=== PATIENT | female | born 1940 | race Caucasian/White ===

== ENCOUNTER 2016-11-02 05:38 | Inpatient (IN) | payer OTHER ==
[2016-10-25 14:04] LABS: URINE BILIRUBIN NEGATIVE (Negative); URINE BLOOD NEGATIVE (Negative); URINE COLOR YELLOW; URINE GLUCOSE-RANDOM* NEGATIVE (Negative); URINE KETONES NEGATIVE (Negative); URINE LEUKOCYTES-REFLEX TRACE (Negative); URINE PROTEIN (DIPSTICK) NEGATIVE (Negative); URINE SPECIFIC GRAVITY 1.015 (1.003-1.035); URINE UROBILINOGEN 0.2 E.U./dl (0.2-1.0)
[2016-10-25 14:05] LABS: HEMATOCRIT 39.1 % (37.0-47.0); HEMOGLOBIN 12.7 gm/dL (12.0-15.0); MCH 27.2 pg (26.0-34.0); MCHC 32.5 g/dL (28.0-37.0); MCV 83.8 fL (80.0-100.0); RBC 4.66 mil/uL (4.20-5.00); RDW 15.2 % (10.5-14.5); WBC 10.8 thou/uL (4.0-11.0)
[2016-10-25 14:19] LABS: INR 1.4; PROTIME 14.6 Seconds (9.3-11.4)
[2016-10-25 14:21] LABS: ALBUMIN 3.4 g/dL (3.4-5.0); CREATININE 1.1 mg/dL (0.6-1.0); POTASSIUM 3.5 mmol/L (3.5-5.1)
[~2016-11-02] VITALS: Ht 170.2 cm; Wt 90.3 kg
[2016-11-02] VITALS (12 sets, daily range): BP systolic 94–135; BP diastolic 44–86
--- NOTE | ~2016-11-02 | HC ---
[place] [address] CONSULTATION Name: MICHELLE العلي Room #: 541-P ADM IN M.R.#: [id number] Admission: 11/02/16 Attend Phys: Lorne Castillo MD Discharge: Date of : 39 Report #: [id number] THIS REPORT FOR: //name// CC: Sudhir Castillo DATE OF SERVICE: 11/03/2016 HISTORY OF PRESENT ILLNESS: The patient is a 75-year-old female well known to myself. Admitted for a right total knee replacement. I am asked to evaluate her postoperatively. This was an uneventful surgery yesterday looking through the operative report. She has a history of stable coronary artery disease with moderate 3 vessel disease from a catheterization 3 years ago, 15% to 60% lesions in all 3 coronary vessels, also 60-70% left ICA, been asymptomatic. She has had no anginal type symptoms. She is postop and doing well without complaints of chest pain or angina. She is hemodynamically stable. She has been compliant with her medications. She has paroxysmal AFib, thus is anticoagulated with Coumadin, but this is becoming more onerous for her. She is also on losartan HCT 50/12.5, Lipitor 40, baby aspirin, propranolol 120, topiramate, Lexapro, ProAir, Cardizem 240, Zantac, levothyroxine and was on Coumadin. LABORATORY WORKUP: Creatinine had been stable. The INR is 1.1 today, H and H is 10.4 and 31.5, white count 16.3, platelets 201. PAST MEDICAL HISTORY: Positive for the paroxysmal AFib and 3-vessel coronary artery disease, which has been stable on a prior stent to the LAD and RCA. Carotid stenosis as noted above. Left is 60-70%. Hypertension, hypercholesterolemia, recurrent headaches, DJD, glaucoma, migraines, chronic sinusitis, cholecystectomy, hysterectomy, tonsillectomy. SOCIAL HISTORY: Former smoker. No illicit drugs. No significant alcohol. She lives alone. She is . She is retired. FAMILY HISTORY: Negative for premature coronary disease. ALLERGIES: CORTISONE AND ELIJAH INHIBITORS. REVIEW OF SYSTEMS: Essentially negative except for stated above. PHYSICAL EXAMINATION: GENERAL: Pleasant, alert. VITAL SIGNS: Blood pressure 120/60, pulse 70. HEENT: Eyes reveal xanthelasmas. Pharynx is clear. NECK: Shows preserved upstrokes without JVD or bruits. LUNGS: Clear. CARDIOVASCULAR: Regular rate and rhythm, S1, S2. There [place] [address] CONSULTATION Name: MICHELLE العلي Room #: 541-P ADM IN M.R.#: [id number] Admission: 11/02/16 Attend Phys: Lorne Castillo MD Discharge: Date of : 39 Report #: [id number] murmur. ABDOMEN: Soft. No HSM or abdominal bruit. EXTREMITIES: Reveal the right lower extremity is wrapped postop knee. Distal pulses are intact. NEUROLOGIC: Nonfocal. SKIN: Warm and dry without xanthoma or ulcer. MUSCULOSKELETAL: As noted above, status post right total knee. ASSESSMENT: 1. Status post right total knee, hemodynamically stable. 2. Coronary artery disease, moderate 3-vessel with prior stents, stable. 3. History of cerebrovascular accident without residual and moderate carotid disease as described above. 4. Paroxysmal atrial fibrillation. 5. Hypercholesterolemia. RECOMMENDATIONS AND PLAN: After discussion with the patient and Dr. Castillo, we will utilize switch to a novel agent here she was inquiring and I think this is reasonable. We will discontinue the warfarin and Coumadin and start Xarelto 10 mg a day. He will evaluate the wound in a week. If this is stable, then we will increase to her normal therapeutic dose would be 20 mg once a day. This has been discussed in detail with the patient and myself and Dr. Castillo. We will proceed in this fashion and we will continue to follow with you. Thank you for asking me to assist in the care of this patient. By: [address] MD, FACC /nt
--- NOTE | ~2016-11-02 | O ---
[facility] [place] [address] OPERATIVE REPORT Name: MICHELLE العلي Room #: 541-P [facility] IN M.R.#: [id number] Admission: 11/02/16 Attend Phys: Lorne Castillo MD Discharge: 11/05/16 Date of : 39 Report #: [id number] THIS REPORT FOR: //name// CC: Sudhir Castillo DATE OF SURGERY: 11/02/2016. PREOPERATIVE DIAGNOSES: 1. Right knee degenerative joint disease, severe. 2. Obesity, BMI 30.86 POSTOPERATIVE DIAGNOSES: 1. Right knee degenerative joint disease, severe. 2. Obesity, BMI 30.86 PROCEDURE: Right total knee arthroplasty. SURGEON: Dr. Lorne Castillo. GOLF STARTER AND RANGER: FAUZIA Carty. ANESTHETIC: General. INDICATIONS: See hospital history and physical. IMPLANTS UTILIZED: Used a DePuy PFC knee system. We used a size 4 narrow cruciate retaining femoral component, press-fit cruciate-retaining. We sized 3 tibial tray with a 12.5 mm insert and a 38 mm oval dome patella. DESCRIPTION OF PROCEDURE: After adequate general anesthesia had been obtained, the patient's right lower extremity was prepped and draped in the usual meticulous sterile fashion. Limb was exsanguinated with gravity, tourniquet inflated to 350 torr. Anterior midline incision was made, subQ divided sharply. Hemostasis obtained with electrocautery. Medial parapatellar incision was made. Infrapatellar fat pad excised. Medial release performed. We drilled the distal femur. This hole was enlarged, irrigated, suctioned, and the intramedullary guide placed the full length of the tibia. The distal femoral cutting guide was placed in appropriate rotation and height and was pinned into place and the distal femoral cut was made. The measuring device determined the size 4 was appropriate size for this patient. We marked the distal femur, impacted the cutting guide in position and the anterior, posterior and chamfer cuts were made. Rongeur was used to remove additional osteophytes. At this time, the tibia translated anteriorly, menisci were excised. Drill was used to drill central portion of the tibia. This hole was enlarged, irrigated, [facility] [address] [place] [address] OPERATIVE REPORT Name: MICHELLE العلي Room #: 541-P DIS IN M.R.#: [id number] Admission: 11/02/16 Attend Phys: Lorne Castillo MD Discharge: 11/05/16 Date of : 39 Report #: [id number] suctioned, and the intramedullary guide placed along the tibia. Proximal tibial cutting guide placed at appropriate height. Proximal tibia cut was made, 3 tray gave us the best coverage on the tibia. We then put the trial components in position with a 12.5 spacer, she had the best flexion and extension gap. Patella tracked normally. At this time, patella was measured, cutting guide clamped into place, patellar cut was made. 38 template gave us the best coverage. Pedicles were drilled, trial component put in position, it tracked normally. At this time, we took the knee through several cycles of flexion and extension. Tibial tray rotation marked, distal femur drilled. Trial components were removed. Tibial keel cuts. We irrigated the knee with both pulse lavage and antibiotic irrigation. We placed bone plugs in the proximal tibia and distal femur. We then vacuum mixed the cement and the knee was irrigated with both pulse lavage and antibiotic irrigation. We then reamed when the cement reached the appropriate consistency, the knee was thoroughly dried, the tibial tray was cemented in place. Excess cement was removed. The polyethylene was impacted in place. The femur impacted in place and the knee was taken out to 30 degrees of flexion, uniform compression placed across components. Patellar button was then cemented into place and again excess cement was removed. The knee was irrigated and irrigation was allowed to rest in the wound until the cement fully cured. When it had done so, the knee was irrigated, dried thoroughly, and inspected. Drains were placed superolaterally both deep and superficial. The retinacular layer closed with combination of interrupted [id number] and #1 Vicryl and running #1 Tevdek. SubQ closed with 2-0 Monocryl in multiple layers due to the patient's size. Skin closed with damari. Sterile compressive dressing applied. Tourniquet deflated. <ELECTRONICALLY SIGNED> By: Lorne Castillo MD 11/09/16 0723 1025 1059 Lorne Castillo MD /nt
[~2016-11-02 05:38] MED LIST: ACETAMINOPHEN325 M1 PO; ACID REDUCER 1150 MG PO; ASA5UEC; ASPIR 8181 MG PO; ASPIRIN EC81 M1 PO; ATORVASTATIN CA40 MG PO; ATORVASTATIN CA80 MG PO; BETA BLOCKER; BETABLOCKER; CARDIZEM CD240 MG PO; COUMADIN 2.5MG2.5 M1 PO; COUMADIN 5 MG TA5 M1 PO; DIOVAN HCT 80-1 EACH PO; HYZAAR 50-12.51 EACH PO; LOTENSIN HCT 21 EACH PO; MULTIVITAMINS1 EAC7 PO; PLAVIX 75 MG TA75 M1 PO; PRADAXA75 MG PO; RANITIDINE HCL75 MG PO; ROSADAN45 G1 TOP; SIMVASTATIN40 MG PO; SINGULAIR 10 MG10 M1 PO; SYSTANE GEL10 GM OPHTHALMIC; TOPAMAX 100 MG100 MG PO; TOPAMAX50 MG PO; VITAMIN D1000 UNI1 PO; VITAMIN D50000 UNIT PO; XALATAN2.5 ML OPHTHALMIC
[2016-11-02 07:40] LABS: INR 1.1; PROTIME 11.7 Seconds (9.3-11.4)
[2016-11-03 04:00] VITALS: BP 116/45; BP 128/48
[2016-11-03 06:24] LABS: HEMATOCRIT 31.5 % (37.0-47.0); HEMOGLOBIN 10.4 gm/dL (12.0-15.0); MCH 27.5 pg (26.0-34.0); MCV 83.2 fL (80.0-100.0); RBC 3.78 mil/uL (4.20-5.00); RDW 14.8 % (10.5-14.5); WBC 16.3 thou/uL (4.0-11.0)
[2016-11-03 06:42] LABS: INR 1.1; PROTIME 11.6 Seconds (9.3-11.4)
[2016-11-03 07:24] VITALS: BP 119/55
[2016-11-03 15:29] VITALS: BP 111/32
[2016-11-03 19:41] VITALS: BP 131/42
[2016-11-04 03:36] VITALS: BP 135/51
[2016-11-04 06:31] LABS: HEMATOCRIT 28.7 % (37.0-47.0); HEMOGLOBIN 9.4 gm/dL (12.0-15.0); MCH 27.4 pg (26.0-34.0); MCHC 32.6 g/dL (28.0-37.0); RBC 3.42 mil/uL (4.20-5.00); RDW 15.2 % (10.5-14.5); WBC 14.8 thou/uL (4.0-11.0)
[2016-11-04 06:43] LABS: INR 1.5; PROTIME 15.1 Seconds (9.3-11.4)
[2016-11-04] MEDS ORDERED: PERCOCET 10-321 EACH PO (07:29)
[2016-11-04] MEDS ORDERED: ONDANSETRON HCL4 M1 PO (07:30)
[2016-11-04] MEDS ORDERED: XARELTO10 MG PO (07:31)
[2016-11-04 08:00] VITALS: BP 106/48
[2016-11-04 08:11] VITALS: BP 106/48
[2016-11-04 15:39] VITALS: BP 94/41
[2016-11-04 19:38] VITALS: BP 103/39
[2016-11-04 20:11] VITALS: BP 94/41
[2016-11-05 03:25] VITALS: BP 130/44
[2016-11-05 06:16] LABS: HEMATOCRIT 28.8 % (37.0-47.0); HEMOGLOBIN 9.3 gm/dL (12.0-15.0); MCH 27.5 pg (26.0-34.0); MCHC 32.4 g/dL (28.0-37.0); MCV 84.8 fL (80.0-100.0); RBC 3.39 mil/uL (4.20-5.00); RDW 15.3 % (10.5-14.5); WBC 12.4 thou/uL (4.0-11.0)
[2016-11-05 06:24] LABS: INR 1.5; PROTIME 15.7 Seconds (9.3-11.4)
[2016-11-05 08:25] VITALS: BP 132/46
[2016-11-05 09:42] VITALS: BP 94/41
== END 2016-11-05 15:44 | disposition home health service (06) | DRG 470 ==
LOC: 5S 05:38 → TBA 05:38 → PRE 06:54 → 5S 11:33 → PRE 12:17 → 5S 11-05 15:44
PROVIDERS: Orthopaedic Surgery
PROC: 0SRC0J9 Replacement of Right Knee Joint with Synthetic Substitute, Cemented, Open Approach (ICD-10-PCS; principal; 2016-11-02)
DX: M17.11 Unilateral primary osteoarthritis, right knee (principal); I25.10 Atherosclerotic heart disease of native coronary artery without angina pectoris; I48.0 Paroxysmal atrial fibrillation; E78.00 Pure hypercholesterolemia, unspecified; I10 Essential (primary) hypertension; H40.9 Unspecified glaucoma; E66.9 Obesity, unspecified; G43.909 Migraine, unspecified, not intractable, without status migrainosus; Z90.49 Acquired absence of other specified parts of digestive tract; Z90.710 Acquired absence of both cervix and uterus; Z68.31 Body mass index [BMI] 31.0-31.9, adult; Z88.8 Allergy status to other drugs, medicaments and biological substances; Z95.5 Presence of coronary angioplasty implant and graft; Z86.73 Personal history of transient ischemic attack (TIA), and cerebral infarction without residual deficits
CPT/HCPCS: 10785; 50010; 50101; 50415; 50954; 51130; 51225; 51320; 51412; 51771; 52001; 52282; 53000; 53078; 53364; 56525; 56527; 62110; 62900; 64037; 70005

== ENCOUNTER 2017-01-28 13:09 | Emergency (ER) | payer OTHER ==
[~2017-01-28] VITALS: Ht 172.7 cm; Wt 86.2 kg
[~2017-01-28 13:09] MED LIST changes: +ONDANSETRON HCL4 M1 PO; +PERCOCET 10-321 EACH PO; +XARELTO10 MG PO
[2017-01-28] MEDS ORDERED: XARELTO20 MG PO (13:40)
[2017-01-28] MEDS ORDERED: TRAMADOL 50 MG50 MG PO (14:49)
[2017-01-28] MEDS ORDERED: KEFLEX500 MG PO (15:05)
[2017-01-28 15:26] VITALS: BP 132/87
== END 2017-01-28 15:25 | disposition home or self-care (01) ==
LOC: ER 13:09
DX: S62.397A Other fracture of fifth metacarpal bone, left hand, initial encounter for closed fracture (principal); S60.222A Contusion of left hand, initial encounter; S50.12XA Contusion of left forearm, initial encounter; S50.11XA Contusion of right forearm, initial encounter; S10.93XA Contusion of unspecified part of neck, initial encounter; S80.02XA Contusion of left knee, initial encounter; E78.00 Pure hypercholesterolemia, unspecified; J45.909 Unspecified asthma, uncomplicated; K21.9 Gastro-esophageal reflux disease without esophagitis; I10 Essential (primary) hypertension; G43.909 Migraine, unspecified, not intractable, without status migrainosus; Z86.73 Personal history of transient ischemic attack (TIA), and cerebral infarction without residual deficits; Z88.6 Allergy status to analgesic agent; Z87.891 Personal history of nicotine dependence; V89.2XXA Person injured in unspecified motor-vehicle accident, traffic, initial encounter; Y93.I9 Activity, other involving external motion; Y92.89 Other specified places as the place of occurrence of the external cause; Y99.8 Other external cause status

== ENCOUNTER → 2017-06-24 | Outpatient (CLI) | payer OTHER ==
[~2017-06-24] MED LIST changes: +CLOPIDOGREL75 MG PO; +KEFLEX500 MG PO; +TRAMADOL 50 MG50 MG PO; +XARELTO20 MG PO
== END ==
LOC: RAD 13:54
DX: N60.01 Solitary cyst of right breast (principal); N63.10 Unspecified lump in the right breast, unspecified quadrant

== ENCOUNTER 2017-06-28 05:22 | Inpatient (IN) | payer OTHER ==
[2017-06-23 13:19] LABS: HEMATOCRIT 39.5 % (37.0-47.0); HEMOGLOBIN 12.6 gm/dL (12.0-15.0); MCH 25.9 pg (26.0-34.0); MCHC 31.9 g/dL (28.0-37.0); MCV 81.1 fL (80.0-100.0); RBC 4.87 mil/uL (4.20-5.00); RDW 16.3 % (10.5-14.5); WBC 11.3 thou/uL (4.0-11.0)
[2017-06-23 13:35] LABS: ALBUMIN 3.7 g/dL (3.4-5.0); CALCIUM 8.9 mg/dL (8.5-10.1); POTASSIUM 4.1 mmol/L (3.5-5.1); TOTAL BILIRUBIN 0.2 mg/dL (<0.1-1.0)
[2017-06-23 13:38] LABS: APTT 34.6 Seconds (24.5-32.8); INR 1.1; PROTIME 11.4 Seconds (9.3-11.4); URINE BILIRUBIN NEGATIVE (Negative); URINE BLOOD NEGATIVE (Negative); URINE CLARITY CLEAR; URINE COLOR YELLOW; URINE GLUCOSE-RANDOM* NEGATIVE (Negative); URINE KETONES NEGATIVE (Negative); URINE LEUKOCYTES TRACE (Negative); URINE NITRITE NEGATIVE (Negative); URINE PROTEIN (DIPSTICK) NEGATIVE (Negative); URINE UROBILINOGEN 0.2 E.U./dl (0.2-1.0)
[~2017-06-28] VITALS: Ht 172.7 cm; Wt 91.4 kg
--- NOTE | ~2017-06-28 | O ---
[facility] [place] [address] OPERATIVE REPORT Name: MICHELLE العلي Room #: 245-P [facility] IN M.R.#: [id number] Admission: 06/28/17 Attend Phys: Sharif Bhatia MD Discharge: 06/29/17 Date of : 39 Report #: [id number] THIS REPORT FOR: //name// CC: Sudhir Walker Sharif Bhatia DATE OF SERVICE: 06/28/2017 PREOPERATIVE DIAGNOSIS: Left internal carotid artery stenosis, asymptomatic. FINAL DIAGNOSIS: Left internal carotid artery stenosis, asymptomatic. OPERATIVE PROCEDURE PERFORMED: Left carotid endarterectomy with bovine pericardial patch angioplasty. SURGEON: Sharif Bhatia M.D. SHINGLE CUTTER: ZEE Crisostomo. ANESTHESIA: General. OPERATIVE INDICATIONS: The patient is a 76-year-old female with known history of coronary artery disease, who has been followed and also for cerebrovascular occlusive disease, who was found to have evidence of high-grade stenosis that was asymptomatic on recent ultrasound. Angiography confirmed there was approximately 80% stenosis in the left internal carotid. She is admitted today and brought to the operating room for carotid endarterectomy. OPERATIVE SUMMARY: The patient was brought to the operating room and placed on the OR table in supine position. After anesthesia was induced via the general endotracheal route and monitoring lines have been position, including EEG monitoring, the patient was prepped and draped in sterile fashion with chlorhexidine. An oblique incision was made anterior to the sternocleidomastoid muscle. Dissection was carried down medially and the contents of the carotid sheath were identified and dissected free from surrounding tissue. The common internal and external carotid arteries were identified and dissected free from the surrounding tissue. The vagus and hypoglossal nerves were identified. Care was taken not to injure them during this dissection. Intravenous heparin 15,000 units were given and after appropriate period of circulation, the internal, then common and then external carotid arteries were clamped. A common carotid arteriotomy was made and extended up into the internal carotid artery through the plaque. We placed a 12-Ethiopian shunt in the internal carotid artery, allowed it to back bleed and then placed it in the common carotid artery, where it was controlled proximally with a Rumel tourniquet. We then dissected the plaque from the vessel wall. There was not a lot of calcification or atherosclerosis present. However, there was a high-grade stenosis noted. The plaque was [facility] [address] [place] [address] OPERATIVE REPORT Name: MICHELLE العلي SATISH Room #: 245-P [facility] IN .R.#: [id number] Admission: 06/28/17 Attend Phys: Sharif Bhatia MD Discharge: 06/29/17 Date of : 39 Report #: [id number] dissected from the vessel wall and was amputated proximally. Distally, there was good tapering and an eversion endarterectomy was performed of the external carotid artery. All loose fronds were then debrided from the vessel wall under loupe magnification and saline irrigation. We then prepared a bovine pericardial patch, cutting it to the appropriate size and sewn in place with 6-0 Prolene. Prior to completing this closure, the shunt was clamped, cut and then removed. Clamps were placed back on the internal common carotid arteries. The site was flushed both retrograde and antegrade and then irrigated with heparinized saline solution. The closure was completed. De-airing was performed by releasing the clamp on the external carotid artery. After completion of the closure, the common carotid clamp was released and then the internal carotid clamp was released. Protamine was given to reverse the heparin. Excellent Doppler signals were noted at the common internal and external carotid sites. Once appropriate hemostasis was achieved, the wound was closed in multiple layers with absorbable sutures. The procedure was completed. The patient was taken to the Postanesthesia Care Unit in stable condition. The operative blood loss was approximately 50 mL. There were no intraoperative complications noted. No changes on the EEG noted. <ELECTRONICALLY SIGNED> By: Sharif Bhatia MD 07/09/17 1116 0959 1024 Sharif Bhatia MD /nt
--- NOTE | ~2017-06-28 | S ---
[facility] [place] [address] SURGICAL PATH RPT PROCEDURE Name: OLIVIA العلي Room #: 245-P DIS IN M.R.#: [id number] Admission: 06/28/17 Date of : 39 Discharge: 06/29/17 Report #: [id number] Path Case #: [id number] PATHOLOGY REPORT COLLECTION DATE: 06/28/2017 RECEIVED DATE: 06/28/2017 SUBMITTING PHYS: Dr. Sharif Bhatia OTHER PHYS: Dr. Sudhir Walker SPECIMEN(S) RECEIVED: A.Left carotid artery plaque * * * * * * * * * * * * FINAL DIAGNOSIS: "Left carotid artery plaque," endarterectomy: - Calcific atherosclerosis. (CLW:mgr; 06/29/2017) PATHOLOGIST: Chari Elizabeth M.D. REPORT ELECTRONICALLY SIGNED BY: Chari Elizabeth M.D. DATE/TIME: 06/29/2017 14:53 * * * * * * * * * * * * GROSS PATHOLOGY: The specimen is received in formalin, labeled "Olivia العلي, left carotid artery plaque," and consists of a segment of rubbery to calcified yellow-haddad tissue measuring 2.4 x 1.0 x 0.7 cm. It is entirely submitted in cassette A1 following decalcification. (SDY; 06/28/2017) CLINICAL HISTORY: Carotid stenosis INITIAL CPT CODE(S): A; 38385, 25899 Professional services performed by [facility] at [facility] [address], [place] [address] Technical services performed by [facility] at [address] [place] [address], [address], [place] [address]. [facility] [address] [place] [address] SURGICAL PATH RPT PROCEDURE Name: SEVERIANOOLIVIA SUE Room #: 245-P DIS IN M.R.#: [id number] Admission: 06/28/17 Date of : 39 Discharge: 06/29/17 Report #: [id number] Path Case #: [id number] [address] PHONE: [phone] DIRECTOR: Hiro Carmichael M.D. * * * END OF REPORT * * *
[~2017-06-28 05:22] MED LIST changes: -CLOPIDOGREL75 MG PO
[2017-06-28 07:20] VITALS: BP 132/73
[2017-06-28 11:53] VITALS: BP 90/49
[2017-06-28 12:00] VITALS: BP 122/42
[2017-06-28 16:00] VITALS: BP 129/54
[2017-06-29] VITALS (13 sets, daily range): BP systolic 91–129; BP diastolic 38–90
[2017-06-29 05:22] LABS: HEMATOCRIT 30.2 % (37.0-47.0); HEMOGLOBIN 9.7 gm/dL (12.0-15.0); MCH 26.2 pg (26.0-34.0); MCHC 32.3 g/dL (28.0-37.0); MCV 81.2 fL (80.0-100.0); RBC 3.72 mil/uL (4.20-5.00); RDW 15.9 % (10.5-14.5); WBC 10.2 thou/uL (4.0-11.0)
[2017-06-29 05:28] LABS: CALCIUM 8.4 mg/dL (8.5-10.1); CREATININE 0.9 mg/dL (0.6-1.0); POTASSIUM 3.8 mmol/L (3.5-5.1)
[2017-06-29] MEDS ORDERED: ASPIRIN EC81 M1 PO (10:47)
[2017-08-02] MEDS ORDERED: VITAMIN D1000 UNI1 PO (06:57)
[2017-08-03] MEDS ORDERED: CLOPIDOGREL75 MG PO (08:01)
[2017-08-03] MEDS ORDERED: ASPIRIN EC81 M1 PO (08:01)
== END 2017-06-29 11:07 | disposition home or self-care (01) | DRG 38 ==
LOC: TBA 05:22 → ICU 05:22 → PRE 05:36 → ICU 11:49 → PRE 12:37 → ICU 06-29 11:07
PROVIDERS: Nurse Practitioner; Thoracic Surgery (Cardiothoracic Vascular Surgery)
PROC: 03CL0ZZ Extirpation of Matter from Left Internal Carotid Artery, Open Approach (ICD-10-PCS; principal; 2017-06-28)
PROC: 4A133B1 Monitoring of Arterial Pressure, Peripheral, Percutaneous Approach (ICD-10-PCS; principal; 2017-06-28)
PROC: 03HY32Z Insertion of Monitoring Device into Upper Artery, Percutaneous Approach (ICD-10-PCS; principal; 2017-06-28)
PROC: 4A133J1 Monitoring of Arterial Pulse, Peripheral, Percutaneous Approach (ICD-10-PCS; principal; 2017-06-28)
PROC: 03UL0KZ Supplement Left Internal Carotid Artery with Nonautologous Tissue Substitute, Open Approach (ICD-10-PCS; principal; 2017-06-28)
DX: I65.22 Occlusion and stenosis of left carotid artery (principal); D62 Acute posthemorrhagic anemia; I25.10 Atherosclerotic heart disease of native coronary artery without angina pectoris; I48.91 Unspecified atrial fibrillation; I10 Essential (primary) hypertension; E78.5 Hyperlipidemia, unspecified; G43.909 Migraine, unspecified, not intractable, without status migrainosus; Z96.659 Presence of unspecified artificial knee joint; H40.9 Unspecified glaucoma; K21.9 Gastro-esophageal reflux disease without esophagitis; Z79.899 Other long term (current) drug therapy; Z88.8 Allergy status to other drugs, medicaments and biological substances; Z79.01 Long term (current) use of anticoagulants; Z90.49 Acquired absence of other specified parts of digestive tract; Z90.710 Acquired absence of both cervix and uterus
CPT/HCPCS: 10078; 50010; 50101; 50386; 50417; 50455; 51301; 52279; 56524; 56526; 56528; 56533; 56639; 62110; 62900; 65020; 65040; 65060; 70005

== ENCOUNTER → 2019-06-05 | Outpatient (CLI) | payer OTHER ==
[~2019-06-05] MED LIST changes: +CLOPIDOGREL75 MG PO
== END ==
LOC: RAD 09:52
DX: M47.26 Other spondylosis with radiculopathy, lumbar region (principal); M41.86 Other forms of scoliosis, lumbar region; I70.0 Atherosclerosis of aorta; M25.551 Pain in right hip

== ENCOUNTER → 2019-08-09 | Outpatient (CLI) | payer OTHER ==
[~2019-08-09] VITALS: Ht 170.2 cm; Wt 93.4 kg
[~2019-08-09] MED LIST changes: +BENICAR40 MG PO; +BYSTOLIC10 MG
--- NOTE | ~2019-08-09 | HPC ---
[facility] [place] [place] [address] PAIN MANAGEMENT CONSULTATION Name: MICHELLE العلي [id number] Admission: 08/09/19 Attend Phys: Mikey Nieves MD Discharge: Date of : 39 Report #: [id number] THIS REPORT FOR: cc: Mika Salgado MD, Stanley P. MD Morgan, Richard L. MD ~ CC: Sudhir Salgado DATE OF SERVICE: 08/09/2019 CHIEF COMPLAINT: Low back pain with radiation into the left hip, left hip and groin pain. HISTORY OF PRESENT ILLNESS: The patient presents to the pain clinic today with severe pain. I have seen her in the past, but it has been nearly 4 years since her last injection. She received intermittent epidural injections about twice a year, always reporting excellent pain relief. Review of those injections and dictations from our records describes pain at that time also into the left hip, similar to the pain that she is experiencing. In fact I note on her last dictation in 2016 that she had had intermittent injections dating back to the year 1999, so it has been almost 20 years!. She reports improvement after she left her apartment on the second floor in 2016. She believes that her pain was under better control when she was not having go up and down. The pain has now returned with a vengeance and she scores it as an 8-9/10, worse with standing and weightbearing. MEDICATIONS: ____; olmesartan; aspirin; cholecalciferol; Xarelto, last dose last night; Topamax; atorvastatin; diltiazem and Xalatan eyedrops. ALLERGIES: PREDNISONE CAUSES FACIAL FLUSHING. She never had any difficulty with triamcinolone or Depo-Medrol. REVIEW OF SYSTEMS: Fatigue, weakness, cataracts, history of coronary artery disease, shortness of breath, frequent urination and prior stroke. PAST MEDICAL HISTORY: Longstanding persistent atrial fibrillation, osteoarthritis, CVA, knee replacement, cholecystectomy, multiple stent procedures and "various other orthopedic surgeries." SOCIAL HISTORY: She is retired, lives alone as a and is independent with activities of daily living. She denies tobacco and alcohol. She completed an opioid risk tool and her score is 3, which is considered low risk for addiction based upon prior substance abuse with alcohol. [address] [address] PAIN MANAGEMENT CONSULTATION Name: MICHELLE العلي Room #: REG [facility] Clementina#: [id number] Admission: 08/09/19 Attend Phys: Mikey Nieves MD Discharge: Date of : 39 Report #: [id number] PHYSICAL EXAMINATION: GENERAL: Pleasant female. VITAL SIGNS: Blood pressure is 153/81, heart rate 55, respirations 18. She is 5 feet 7 inches, weight 206 with a BMI of 32.3. She can independently move from a sitting to standing position, but generally walks with a cane. She is a fall risk. Without a cane, she has a marked antalgic gait. She favors her left leg. Breathing is comfortable. CHEST: Clear. CARDIAC: Rhythm irregular. MUSCULOSKELETAL: Examination of the spine reveals tenderness across the lumbosacral segment. Range of motion exercises do not significantly exacerbates pain. She has modest straight leg raising in the sitting and supine position. She does also have some increased pain with external rotation of the hip. It is not so bad with internal rotation and flexion. She has no numbness or tingling. Deep tendon reflexes are absent bilaterally in lower extremities. X-RAYS: New x-rays include plain films of the lumbar spine and hip. It appears that there might be a slight spondylolisthesis with bulging of the L5-S1 disk. This protrusion causes some displacement and appears to cause some abutment against the L5 nerve roots. We do not have an MRI. The hip shows moderate to severe arthritis with some spurring noted. IMPRESSION: 1. Chronic low back pain with spondylosis and radiculopathy, which has responded favorably to epidural injections over the course of many years. 2. Left hip pain with osteoarthritis. There appears to be some degree of arthritic pain in the left hip as well. 3. Coronary artery disease with history of atrial fibrillation. 4. Morbid obesity. RECOMMENDATIONS: After some discussion, we have decided that we would proceed with an epidural injection given her very good response to the left hip pain in the past. If she does not respond, I would consider a diagnostic/therapeutic hip injection under fluoroscopic guidance. She will need to be off her Xarelto for 72 hours and we will see her back next Tuesday that is 4 days and I will perform the injection. Potential benefits and risks reviewed. By: 1338 2138 Mikey Nieves MD /nt
[2019-08-09 12:37] VITALS: BP 153/81
--- NOTE | 2019-08-09 12:50 | NUR ---
Pain Clinic Assessment: 1. History of Osteoarthritis: KNEES History of Rheumatoid Arthritis: Not Applicable 2. Height: 5 ft. 7 in. 170.2 cm. Weight: 206.0 lb. oz. 93.441 kg. Patient's BMI: 32.3 3. Vital Signs: BP: 153/81 Pulse: 55 Resp: 18 Temp: 02 Sat: 100 ECG Mon: 4. Pain Intensity: 8-9 5. Fall Risk: Dizziness: N Needs help standing or walking: N Fallen in the last 3 months: N Fall risk comments: 6. Patient on Blood Thinner: XARELTO 7. History of Hypertension: Y 8. Opioid Therapy greater than 6 weeks: N Opiate Contract Signed: 9. Risk Assessment Tool Provided: 3-LOW RISK 10. Functional Assessment Tool: 11. Recreational Drug Use: Never Drug Type: Tobacco Use: Former Smoker Tobacco Type: Cigarettes Amount or Packs/day: How Many Years: Alcohol Use: No Frequency: Quant:
== END ==
LOC: PAIN 07:27
DX: M47.26 Other spondylosis with radiculopathy, lumbar region (principal); M25.552 Pain in left hip; M16.12 Unilateral primary osteoarthritis, left hip; I25.10 Atherosclerotic heart disease of native coronary artery without angina pectoris; E66.9 Obesity, unspecified; Z88.8 Allergy status to other drugs, medicaments and biological substances; Z79.899 Other long term (current) drug therapy

== ENCOUNTER → 2019-08-27 | Outpatient (CLI) | payer OTHER ==
[~2019-08-27] VITALS: Ht 172.7 cm; Wt 92.6 kg
--- NOTE | ~2019-08-27 | HPC ---
[address] [address] PAIN MANAGEMENT CONSULTATION Name: MICHELLE العلي [id number] Admission: 08/27/19 Attend Phys: Mikey Nieves MD Discharge: Date of : 39 Report #: [id number] THIS REPORT FOR: cc: Mika Salgado MD, Stanley P. MD Morgan, Richard L. MD ~ CC: Mikey Salgado DATE OF SERVICE: 08/27/2019 Followup visit for low back pain with radiculopathy. The patient was seen on 08/09/2019. She was rescheduled at that time to go off of her Eliquis and to undergo a lumbar epidural injection at L4-L5. She has responded very favorably to these injections with sustained improvement. Her first injection provided quite dramatic relief. The pain is now returning. We can repeat the injection now, but we will perform further injections going forward on an as needed basis. She is here today for the procedure. We reviewed her visit of 08/09/2019. IMPRESSION: Low back pain with radiculopathy and spinal stenosis. PROCEDURE: Epidural steroid injection under fluoroscopic guidance. DESCRIPTION OF PROCEDURE: After informed consent, she was taken to fluoroscopic suite, placed prone, skin prepped with ChloraPrep. Skin anesthetized over the L4-L5 interspace. A 22-gauge non-coring needle advanced into the epidural space with loss of resistance. No blood or CSF was aspirated. I injected 3 mL of 0.5% lidocaine mixed with 80 mg triamcinolone. She tolerated the procedure well and was observed for 45 minutes in recovery room and discharged without complication. Follow up as needed. By: [id number] Mikey Nieves MD /nt
[2019-08-27 12:28] VITALS: BP 153/58
--- NOTE | 2019-08-27 12:34 | NUR ---
Pain Clinic Assessment: 1. History of Osteoarthritis: KNEES History of Rheumatoid Arthritis: Not Applicable 2. Height: 5 ft. 8 in. 172.7 cm. Weight: 204.2 lb. oz. 92.625 kg. Patient's BMI: 31.1 3. Vital Signs: BP: 153/58 Pulse: 95 Resp: 20 Temp: 02 Sat: 94 ECG Mon: 4. Pain Intensity: 5 5. Fall Risk: Dizziness: N Needs help standing or walking: N Fallen in the last 3 months: N Fall risk comments: 6. Patient on Blood Thinner: XARELTO 7. History of Hypertension: Y 8. Opioid Therapy greater than 6 weeks: N Opiate Contract Signed: 9. Risk Assessment Tool Provided: 3-LOW RISK 10. Functional Assessment Tool: 11. Recreational Drug Use: Never Drug Type: Tobacco Use: Former Smoker Tobacco Type: Amount or Packs/day: How Many Years: Alcohol Use: No Frequency: Quant:
== END | disposition home or self-care (01) ==
LOC: PAIN 06:58
DX: M48.061 Spinal stenosis, lumbar region without neurogenic claudication (principal); M54.16 Radiculopathy, lumbar region; G89.29 Other chronic pain; I25.10 Atherosclerotic heart disease of native coronary artery without angina pectoris; Z98.890 Other specified postprocedural states; Z79.899 Other long term (current) drug therapy; Z88.8 Allergy status to other drugs, medicaments and biological substances; Z87.891 Personal history of nicotine dependence

== ENCOUNTER → 2019-09-26 | Outpatient (CLI) | payer OTHER ==
[~2019-09-26] MED LIST changes: +DILTIAZEM 24HR240 M1 PO; +LOSARTAN-HCTZ1 EAC3 PO; +PREDNISONE 5 MG5 M1 PO; +ULTRAM50 MG PO
== END ==
LOC: MRI 09-24 12:39
PROVIDERS: ATTEND Internal Medicine Rheumatology
DX: M51.16 Intervertebral disc disorders with radiculopathy, lumbar region (principal); N28.1 Cyst of kidney, acquired; M25.78 Osteophyte, vertebrae; M47.896 Other spondylosis, lumbar region

== ENCOUNTER → 2019-10-15 | Outpatient (CLI) | payer OTHER | LOC: SJCVC 12:06 | PROVIDERS: ATTEND Internal Medicine Cardiovascular Disease | DX: R00.1 Bradycardia, unspecified (principal); R94.31 Abnormal electrocardiogram [ECG] [EKG]; I25.10 Atherosclerotic heart disease of native coronary artery without angina pectoris; I10 Essential (primary) hypertension; E78.00 Pure hypercholesterolemia, unspecified; I48.0 Paroxysmal atrial fibrillation; I65.23 Occlusion and stenosis of bilateral carotid arteries; D68.59 Other primary thrombophilia; J45.909 Unspecified asthma, uncomplicated; K21.9 Gastro-esophageal reflux disease without esophagitis; E78.5 Hyperlipidemia, unspecified; Z86.73 Personal history of transient ischemic attack (TIA), and cerebral infarction without residual deficits; Z79.899 Other long term (current) drug therapy; Z87.891 Personal history of nicotine dependence ==

== ENCOUNTER → 2019-10-18 | Outpatient (CLI) | payer OTHER ==
[~2019-10-18] VITALS: Ht 175.3 cm; Wt 90.4 kg
[~2019-10-18] MED LIST changes: +NITROGLYCERIN0.3 M1 SUBLING
[2019-10-18 09:28] VITALS: BP 118/56
--- NOTE | 2019-10-18 09:40 | NUR ---
Pain Clinic Assessment: 1. History of Osteoarthritis: KNEES History of Rheumatoid Arthritis: DENIES 2. Height: 5 ft. 9 in. 175.3 cm. Weight: 199.4 lb. oz. 90.447 kg. Patient's BMI: 29.4 3. Vital Signs: BP: 118/56 Pulse: 63 Resp: 16 Temp: 02 Sat: 97 ECG Mon: 4. Pain Intensity: 9 5. Fall Risk: Dizziness: N Needs help standing or walking: Y Fallen in the last 3 months: N Fall risk comments: 6. Patient on Blood Thinner: XARELTO 7. History of Hypertension: Y 8. Opioid Therapy greater than 6 weeks: N Opiate Contract Signed: 9. Risk Assessment Tool Provided: 3-LOW RISK 10. Functional Assessment Tool: 11. Recreational Drug Use: Never Drug Type: Tobacco Use: Former Smoker Tobacco Type: Amount or Packs/day: How Many Years: Alcohol Use: Past use Frequency: Quant:
--- NOTE | 2019-11-08 09:56 | HPC ---
[facility] Emily Serrano [employer] [place] [address] PAIN MANAGEMENT CONSULTATION Name: MICHELLE العلي Room #: REG [facility]..#: [id number] Admission: 10/18/19 Attend Phys: Mikey Nieves MD Discharge: Date of : 38 Report #: [id number] THIS REPORT FOR: cc: Mkia Salgado MD, Stanley P. MD Morgan, Richard L. MD ~ CC: Mikey Salgado DATE OF SERVICE: 10/18/2019 Followup visit for left lumbar radiculopathy. HISTORY OF PRESENT ILLNESS: The patient returns to pain clinic today for another epidural injection. She typically responds well with longstanding response, but she moved shortly after her last epidural injection and pain came back with a vengeance. She was doing lots of awkward lifting and caring up and down steps and she has basically been sedentary for the last 3-4 weeks. She is here today for another injection and has discontinued her Xarelto. She has pledged to be more cautious in her activities. We did discuss exercise, body mechanics at some length today during her visit. With her sedentary activities, she has noted that she has had some increased swelling in her lower extremities. She does have a history of coronary artery disease and will follow up with her primary care physician. PQRS: Positive for osteoarthritis of the knees. She denies other joint pains except for back pain, which is mostly spondylitic and radicular. BMI is 29.4, blood pressure 118/56, heart rate 53, respirations 16, her O2 sat is 97%. Her pain intensity today is 9/10. She walks with a cane and has a marked antalgic gait. She has not fallen; however, and is cautious. She has medication Xarelto for coronary artery disease, but discontinued it for 7 days in anticipation of injection. 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 She denies opioid therapy. She did complete an opioid risk tool and her score is 3/10. Functional assessment score is 52, which is suggesting marked impact of her pain on day-to-day activities. She denies use of tobacco and alcohol. PHYSICAL EXAMINATION: VITAL SIGNS/GAIT: As noted. GENERAL: She has normal heart rate without rhythm issues. MUSCULOSKELETAL: Reveals tenderness across the lumbosacral segment. Marked reduction in range of motion of the lumbar spine. Weakness in the left leg with hip flexion and extension, leg extension and dorsiflexion. Much of this is due to pain. Sensation is intact. Straight leg raising positive. IMPRESSION: Left lumbar radiculopathy, primarily L4-L5. MRI evidence of [address] [address] PAIN MANAGEMENT CONSULTATION Name: MICHELLE العلي Room #: REG [facility].#: [id number] Admission: 10/18/19 Attend Phys: Mikey Nieves MD Discharge: Date of : 38 Report #: [id number] moderate spinal stenosis at that level with milder spinal stenosis at level of L3-L4. PROCEDURE: L4-L5 transforaminal epidural injection under fluoroscopic guidance. DESCRIPTION OF PROCEDURE: After informed consent, she was taken to fluoroscopic suite, placed prone, skin prepped with ChloraPrep. Skin anesthetized over the L4-L5 neural foramen. Using triplanar fluoroscopic views, I advanced the needle into the epidural space on the first attempt. An excellent epidurogram was achieved. It was then followed by 3 mL of 0.5% lidocaine mixed with 80 mg of triamcinolone. She tolerated the procedure well and no complications. She was observed in recovery room for a short time and discharged with followup visit planned as needed in the future. We did not schedule a repeat injection for her given her long history of extended response. <ELECTRONICALLY SIGNED> By: Mikey Nieves MD 11/08/19 [id number] Mikey Nieves MD /nt
== END | disposition home or self-care (01) ==
LOC: PAIN 10-15 06:54
PROVIDERS: ATTEND Anesthesiology Pain Medicine
DX: M54.16 Radiculopathy, lumbar region (principal); G89.29 Other chronic pain; M48.061 Spinal stenosis, lumbar region without neurogenic claudication; I10 Essential (primary) hypertension; Z98.890 Other specified postprocedural states; Z79.899 Other long term (current) drug therapy; Z87.891 Personal history of nicotine dependence

== ENCOUNTER → 2019-11-27 | Outpatient (CLI) | payer OTHER ==
[~2019-11-27] MED LIST changes: -NITROGLYCERIN0.3 M1 SUBLING
== END ==
LOC: MRI 10:25
PROVIDERS: ATTEND Internal Medicine
DX: S73.102A Unspecified sprain of left hip, initial encounter (principal); M70.62 Trochanteric bursitis, left hip; M16.12 Unilateral primary osteoarthritis, left hip; K57.30 Diverticulosis of large intestine without perforation or abscess without bleeding; X58.XXXA Exposure to other specified factors, initial encounter; Y93.89 Activity, other specified; Y92.89 Other specified places as the place of occurrence of the external cause; Y99.8 Other external cause status

== ENCOUNTER → 2019-12-06 | Outpatient (CLI) | payer OTHER ==
[~2019-12-06] VITALS: Ht 175.3 cm; Wt 86.3 kg
--- NOTE | ~2019-12-06 | HPC ---
[facility] [place] [address] PAIN MANAGEMENT CONSULTATION Name: MICHELLE العلي Room #: REG [facility] ..#: [id number] Admission: 12/06/19 Attend Phys: Mikey Nieves MD Discharge: Date of : 38 Report #: [id number] THIS REPORT FOR: cc: Mika Salgado MD, Stanley P. MD Morgan, Richard L. MD ~ CC: Mikey Salagdo MD DATE OF SERVICE: 12/06/2019 I am seeing the patient today at the request of Dr. Salgado who thought she might want another epidural injection. She was scheduled to see ____ for a hip injection on the , but she did not go to that appointment. She continues to complain not so much of pain, but a weakness. Weakness is in hip flexion, leg extension. She uses a cane to prevent falls. PQRS REVIEW: Positive for pain score of 2/10. Her pain really is not so much of a problem. She has some osteoarthritis of her knees and hips. Her BMI is 28.1 and stable. She has not fallen in 3 months in part because of her good management of her weakness. She is on Xarelto. History of hypertension is noted. Opioid therapy has not been provided to this patient as she has completed an opioid risk tool and her score is 3/10. Functional assessment tool is 32/70. She denies use of tobacco or alcohol. PHYSICAL EXAMINATION: GENERAL: She is pleasant, grumpy because of wearing a mask. She says it causes shortness of breath due to her many years of smoking. We talked about the small sacrifice that we almost make during this time and that we will eventually come through. I provided an optimistic outlook. CHEST: Clear. CARDIAC: Rhythm is regular. MUSCULOSKELETAL: She was able to independently move from sitting to standing position, but her gait is weak and the cane is important for stabilization. IMPRESSION: 1. Chronic back pain with diffuse spondylosis. Lumbar radiculopathy presenting mostly as weakness. 2. Osteoarthritis of the hips. Left hip greater than right. 3. Spinal stenosis, L4-L5. This has responded from a pain standpoint with epidural injections. RECOMMENDATIONS: 1. Epidural injections can be performed periodically at her discretion. She does not want an injection today and I am fine with that. [facility] [address] [facility] [place] [address] PAIN MANAGEMENT CONSULTATION Name: MICHELLE العلي Room #: REG [facility]#: [id number] Admission: 12/06/19 Attend Phys: Mikey Nieves MD Discharge: Date of : 38 Report #: [id number] 2. Physical therapy referral to [facility] for strengthening. She had a bad experience with therapy before. I will contact [facility] to make sure that they are careful in providing her with exercise for strength. By: [id number] MD nicole Albarran
[2019-12-06 08:51] VITALS: BP 126/68
--- NOTE | 2019-12-06 08:59 | NUR ---
Pain Clinic Assessment: 1. History of Osteoarthritis: KNEES History of Rheumatoid Arthritis: DENIES 2. Height: 5 ft. 9 in. 175.3 cm. Weight: 190.2 lb. oz. 86.274 kg. Patient's BMI: 28.1 3. Vital Signs: BP: 126/68 Pulse: 77 Resp: 18 Temp: 02 Sat: 97 ECG Mon: 4. Pain Intensity: 2 5. Fall Risk: Dizziness: N Needs help standing or walking: N Fallen in the last 3 months: N Fall risk comments: 6. Patient on Blood Thinner: XARELTO 7. History of Hypertension: Y 8. Opioid Therapy greater than 6 weeks: N Opiate Contract Signed: 9. Risk Assessment Tool Provided: 3-LOW RISK 10. Functional Assessment Tool: 11. Recreational Drug Use: Never Drug Type: Tobacco Use: Former Smoker Tobacco Type: Amount or Packs/day: How Many Years: Alcohol Use: Past use Frequency: Quant:
== END ==
LOC: PAIN 11-26 10:26
PROVIDERS: ATTEND Anesthesiology Pain Medicine
DX: M47.26 Other spondylosis with radiculopathy, lumbar region (principal); R53.1 Weakness; M16.0 Bilateral primary osteoarthritis of hip; M48.061 Spinal stenosis, lumbar region without neurogenic claudication

== ENCOUNTER → 2020-01-21 | Outpatient (CLI) | payer OTHER | LOC: SJCVCIMAG 11:15 | PROVIDERS: ATTEND Internal Medicine Cardiovascular Disease | DX: I65.23 Occlusion and stenosis of bilateral carotid arteries (principal); Z87.891 Personal history of nicotine dependence ==

== ENCOUNTER → 2020-01-29 | Outpatient (CLI) | payer OTHER | LOC: SJCVC 15:26 | PROVIDERS: ATTEND Internal Medicine Cardiovascular Disease | DX: I25.10 Atherosclerotic heart disease of native coronary artery without angina pectoris (principal); I10 Essential (primary) hypertension; E78.00 Pure hypercholesterolemia, unspecified; I48.0 Paroxysmal atrial fibrillation; I65.23 Occlusion and stenosis of bilateral carotid arteries; I63.9 Cerebral infarction, unspecified ==

== ENCOUNTER → 2020-01-31 | Outpatient (CLI) | payer OTHER | LOC: MRI 01-28 07:36 | PROVIDERS: ATTEND Internal Medicine | DX: G93.89 Other specified disorders of brain (principal); Z86.73 Personal history of transient ischemic attack (TIA), and cerebral infarction without residual deficits ==

== ENCOUNTER 2020-02-11 09:11 | Emergency (ER) | payer OTHER ==
[~2020-02-11] VITALS: Ht 172.7 cm; Wt 88.5 kg
[2020-02-11 09:11] VITALS: BP 127/42
[2020-02-11] MEDS ORDERED: TRAMADOL 50 MG50 MG PO (09:44)
== END 2020-02-11 09:46 | disposition home or self-care (01) ==
LOC: ER 09:11
DX: M54.5 Low back pain (principal); M25.551 Pain in right hip; I25.2 Old myocardial infarction; Z90.49 Acquired absence of other specified parts of digestive tract; Z79.899 Other long term (current) drug therapy; Z87.891 Personal history of nicotine dependence; Z91.011 Allergy to milk products

== ENCOUNTER → 2020-02-21 | Outpatient (CLI) | payer OTHER ==
[~2020-02-21] VITALS: Ht 172.7 cm; Wt 84.8 kg
[~2020-02-21] MED LIST changes: +NITROGLYCERIN0.3 M1 SUBLING
[2020-02-21 09:38] VITALS: BP 96/48
== END | disposition home or self-care (01) ==
LOC: PAIN 06:51
PROVIDERS: ATTEND Anesthesiology Pain Medicine
DX: M54.16 Radiculopathy, lumbar region (principal); M48.061 Spinal stenosis, lumbar region without neurogenic claudication; G89.29 Other chronic pain; I10 Essential (primary) hypertension; M19.90 Unspecified osteoarthritis, unspecified site; Z98.890 Other specified postprocedural states; Z79.899 Other long term (current) drug therapy; Z79.01 Long term (current) use of anticoagulants; Z87.891 Personal history of nicotine dependence

== ENCOUNTER 2020-02-26 09:43 | Emergency (ER) | payer OTHER ==
[~2020-02-26] VITALS: Ht 172.7 cm; Wt 88.5 kg
[~2020-02-26 09:43] MED LIST changes: -NITROGLYCERIN0.3 M1 SUBLING
[2020-02-26 10:27] LABS: ABSOLUTE NEUTROPHILS 11.3 thou/uL (1.4-8.2); BASOPHILS 0.2 % (0.0-2.0); EOSINOPHILS 0.1 % (0.0-3.0); HEMATOCRIT 39.6 % (37.0-47.0); HEMOGLOBIN 12.4 gm/dL (12.0-15.0); LYMPHOCYTES 8.1 % (24.0-44.0); MCH 26.4 pg (26.0-34.0); MCHC 31.3 g/dL (28.0-37.0); MCV 84.4 fL (80.0-100.0); MONOCYTES 6.6 % (1.0-8.0); PLATELET COUNT 292 thou/uL (150-400); RBC 4.69 mil/uL (4.20-5.00); RDW 14.6 % (10.5-14.5); WBC 13.2 thou/uL (4.0-11.0)
[2020-02-26 10:34] LABS: ANION GAP 13 mmol/L (7-16); BUN 22 mg/dL (7-18); CALCIUM 9.3 mg/dL (8.5-10.1); CHLORIDE 104 mmol/L (98-107); CO2 20 mmol/L (21-32); CREATININE 1.1 mg/dL (0.6-1.0); GLUCOSE 122 mg/dL (74-106); POTASSIUM 3.3 mmol/L (3.5-5.1); SODIUM 137 mmol/L (136-145)
[2020-02-26 10:45] LABS: ALBUMIN 3.5 g/dL (3.4-5.0); SGOT 44 U/L (15-37); SGPT 58 U/L (30-65); TOTAL BILIRUBIN 0.5 mg/dL (0.2-1.0); TOTAL PROTEIN 6.9 g/dL (6.4-8.2); TROPONIN-I <0.06 ng/mL (<0.06)
[2020-02-26] MEDS ORDERED: NITROGLYCERIN0.3 M1 SUBLING (14:10)
[2020-02-26 14:23] LABS: URINE BILIRUBIN NEGATIVE (Negative); URINE BLOOD NEGATIVE (Negative); URINE CLARITY CLEAR; URINE COLOR YELLOW; URINE GLUCOSE-RANDOM* NEGATIVE (Negative); URINE KETONES NEGATIVE (Negative); URINE LEUKOCYTES-REFLEX TRACE (Negative); URINE NITRITE-REFLEX NEGATIVE (Negative); URINE PROTEIN (DIPSTICK) NEGATIVE (Negative); URINE UROBILINOGEN 0.2 E.U./dl (0.2-1.0)
[2020-02-26 14:50] VITALS: BP 165/87
--- NOTE | 2020-02-27 07:42 | EKG ---
[facility] [place] [address] ELECTROCARDIOGRAM REPORT Name: MICHELLE العلي Room #: DEP [facility]#: [id number] Admission: 02/26/20 Attend Phys: Discharge: 02/26/20 Date of : 38 Report #: [id number] THIS REPORT FOR: cc: Mika Salgado MD, Stanley P. MD Lundgren,Sotero Lackey MD [facility] ~ THIS REPORT FOR: //name// [facility] ED Test Date: 2020-02-26 Test Time: 09:48:55 Pat Name: MICHELLE العلي Department: Room: Gender: Clinical Documentation Clerk: : 1940 Requested By: Elie Greer Order Number: [id number] MD: Sotero Salazar Measurements Intervals Ferdinand Rate: 87 P: 64 GA: 132 QRS: 64 QRSD: 90 T: 31 QT: 424 QTc: 510 Interpretive Statements Sinus tachycardia Frequent premature ventricular complexes Prolonged QT interval Compared to ECG 09/17/2019 09:34:42 Ventricular premature complex(es) now present Prolonged QT interval now present Electronically Signed On 02-27-2020 7:42:14 BROADCAST OPERATIONS DIRECTOR by Sotero Salazar [email or web address] <ELECTRONICALLY SIGNED> By: Sotero Salazar MD, FAC 02/27/20 0742 Sotero Salazar MD, [facility] /EPI
== END 2020-02-26 14:51 | disposition home or self-care (01) ==
LOC: ER 09:43
PROVIDERS: Emergency Medicine
DX: I25.10 Atherosclerotic heart disease of native coronary artery without angina pectoris (principal); R07.9 Chest pain, unspecified; E87.6 Hypokalemia; N18.9 Chronic kidney disease, unspecified; I25.2 Old myocardial infarction; Z90.49 Acquired absence of other specified parts of digestive tract; Z79.899 Other long term (current) drug therapy; Z87.891 Personal history of nicotine dependence; Z91.011 Allergy to milk products

== ENCOUNTER → 2020-02-27 | Outpatient (CLI) | payer OTHER ==
[~2020-02-27] MED LIST changes: +NITROGLYCERIN0.3 M1 SUBLING
== END ==
LOC: SJCVCIMAG 07:45
PROVIDERS: ATTEND Internal Medicine Cardiovascular Disease
DX: I25.10 Atherosclerotic heart disease of native coronary artery without angina pectoris (principal); I48.0 Paroxysmal atrial fibrillation; E78.5 Hyperlipidemia, unspecified; I10 Essential (primary) hypertension; Z79.899 Other long term (current) drug therapy; Z87.891 Personal history of nicotine dependence

== ENCOUNTER → 2020-06-03 | Outpatient (CLI) | payer OTHER | LOC: RAD 08:26 | PROVIDERS: ATTEND Internal Medicine | DX: M19.071 Primary osteoarthritis, right ankle and foot (principal); M79.671 Pain in right foot ==

== ENCOUNTER → 2020-07-14 | Outpatient (CLI) | payer OTHER | LOC: RAD 14:18 | PROVIDERS: ATTEND Internal Medicine | DX: M19.042 Primary osteoarthritis, left hand (principal); M25.752 Osteophyte, left hip; M19.032 Primary osteoarthritis, left wrist ==

== ENCOUNTER → 2020-07-16 | Outpatient (CLI) | payer OTHER | LOC: RAD 10:21 | PROVIDERS: ATTEND Internal Medicine | DX: M47.817 Spondylosis without myelopathy or radiculopathy, lumbosacral region (principal); M48.061 Spinal stenosis, lumbar region without neurogenic claudication; M25.78 Osteophyte, vertebrae; M41.86 Other forms of scoliosis, lumbar region ==

== ENCOUNTER → 2020-08-06 | Outpatient (CLI) | payer OTHER | LOC: SJCVC 13:57 | PROVIDERS: ATTEND Internal Medicine Cardiovascular Disease | DX: I49.1 Atrial premature depolarization (principal); I25.10 Atherosclerotic heart disease of native coronary artery without angina pectoris; I10 Essential (primary) hypertension; E78.00 Pure hypercholesterolemia, unspecified; I65.23 Occlusion and stenosis of bilateral carotid arteries; I48.0 Paroxysmal atrial fibrillation; D68.59 Other primary thrombophilia; J45.909 Unspecified asthma, uncomplicated; K21.9 Gastro-esophageal reflux disease without esophagitis; E78.5 Hyperlipidemia, unspecified; Z90.710 Acquired absence of both cervix and uterus; Z98.890 Other specified postprocedural states; Z88.8 Allergy status to other drugs, medicaments and biological substances; Z79.899 Other long term (current) drug therapy; Z87.891 Personal history of nicotine dependence; Z86.73 Personal history of transient ischemic attack (TIA), and cerebral infarction without residual deficits ==

== ENCOUNTER → 2020-08-07 | Outpatient (CLI) | payer OTHER ==
[~2020-08-07] VITALS: Ht 172.7 cm; Wt 77.0 kg
[2020-08-07 14:49] VITALS: BP 116/53
--- NOTE | 2020-08-07 15:05 | NUR ---
Pain Clinic Assessment: 1. History of Osteoarthritis: KNEES History of Rheumatoid Arthritis: DENIES 2. Height: 5 ft. 8 in. 172.7 cm. Weight: 169.8 lb. oz. 77.021 kg. Patient's BMI: 25.8 3. Vital Signs: BP: 116/53 Pulse: 67 Resp: 20 Temp: 02 Sat: 100 ECG Mon: 4. Pain Intensity: 9 5. Fall Risk: Dizziness: N Needs help standing or walking: Y Fallen in the last 3 months: N Fall risk comments: 6. Patient on Blood Thinner: XARELTO 7. History of Hypertension: Y 8. Opioid Therapy greater than 6 weeks: N Opiate Contract Signed: 9. Risk Assessment Tool Provided: 3-LOW RISK 10. Functional Assessment Tool: 11. Recreational Drug Use: Never Drug Type: Tobacco Use: Former Smoker Tobacco Type: Amount or Packs/day: How Many Years: Alcohol Use: Past use Frequency: Quant:
== END ==
LOC: PAIN 13:13
PROVIDERS: ATTEND Anesthesiology Pain Medicine
DX: M54.16 Radiculopathy, lumbar region (principal); I10 Essential (primary) hypertension; Z79.899 Other long term (current) drug therapy; Z87.891 Personal history of nicotine dependence

== ENCOUNTER → 2020-08-18 | Outpatient (CLI) | payer OTHER ==
[~2020-08-18] VITALS: Ht 172.7 cm; Wt 86.0 kg
[2020-08-18 11:55] VITALS: BP 107/60
--- NOTE | 2020-08-18 12:02 | NUR ---
Pain Clinic Assessment: 1. History of Osteoarthritis: KNEES History of Rheumatoid Arthritis: DENIES 2. Height: 5 ft. 8 in. 172.7 cm. Weight: 189.6 lb. oz. 86.002 kg. Patient's BMI: 28.8 3. Vital Signs: BP: 107/60 Pulse: 80 Resp: 20 Temp: 02 Sat: 97 ECG Mon: 4. Pain Intensity: 7 5. Fall Risk: Dizziness: N Needs help standing or walking: Y Fallen in the last 3 months: N Fall risk comments: 6. Patient on Blood Thinner: XARELTO 7. History of Hypertension: Y 8. Opioid Therapy greater than 6 weeks: N Opiate Contract Signed: 9. Risk Assessment Tool Provided: 3-LOW RISK 10. Functional Assessment Tool: 11. Recreational Drug Use: Never Drug Type: Tobacco Use: Former Smoker Tobacco Type: Amount or Packs/day: How Many Years: Alcohol Use: Past use Frequency: Quant:
== END | disposition home or self-care (01) ==
LOC: PAIN 07:40
PROVIDERS: ATTEND Anesthesiology Pain Medicine
DX: M54.16 Radiculopathy, lumbar region (principal); G89.29 Other chronic pain; I25.10 Atherosclerotic heart disease of native coronary artery without angina pectoris; N18.9 Chronic kidney disease, unspecified; Z98.890 Other specified postprocedural states; Z79.899 Other long term (current) drug therapy; Z79.01 Long term (current) use of anticoagulants

== ENCOUNTER → 2020-10-02 | Outpatient (CLI) | payer OTHER | LOC: SJCVC 11:39 | PROVIDERS: ATTEND Internal Medicine Cardiovascular Disease | DX: R94.31 Abnormal electrocardiogram [ECG] [EKG] (principal); I49.1 Atrial premature depolarization; R07.89 Other chest pain; I10 Essential (primary) hypertension; I25.10 Atherosclerotic heart disease of native coronary artery without angina pectoris; D68.59 Other primary thrombophilia; I48.0 Paroxysmal atrial fibrillation; I65.23 Occlusion and stenosis of bilateral carotid arteries; R41.3 Other amnesia; K21.9 Gastro-esophageal reflux disease without esophagitis; G20 Parkinson's disease; G43.909 Migraine, unspecified, not intractable, without status migrainosus; E78.5 Hyperlipidemia, unspecified; Z86.16 Personal history of COVID-19; Z79.899 Other long term (current) drug therapy; Z87.891 Personal history of nicotine dependence; Z91.040 Latex allergy status; Z88.1 Allergy status to other antibiotic agents; Z88.5 Allergy status to narcotic agent ==

== ENCOUNTER → 2021-03-23 | Outpatient (CLI) | payer OTHER | LOC: SJCVCIMAG 03-16 10:32 | PROVIDERS: ATTEND Internal Medicine Cardiovascular Disease | DX: I25.89 Other forms of chronic ischemic heart disease (principal); I48.0 Paroxysmal atrial fibrillation ==